=== PATIENT | female | born 1950 | race Caucasian/White ===

== ENCOUNTER → 2016-12-04 | Outpatient (CLI) | payer MEDICARE ==
[~2016-12-04] MED LIST: ATOR20TA66 PO; CALC-654 PO; CETI10TA20 PO; EPIN0.3P3 IJ; FURO20TA4 PO; LEVO50TA6 PO; MELO7.5T46 PO; METH4TAB PO; MULT-974 PO; OMG1KC PO; POTA-51 PO; RANI150T90 PO; SPIR25TA3 PO; SULF1TAB38 PO
--- NOTE | 2016-12-04 18:03 | Diagnostic Imaging Report ---
CLINICAL INDICATION: Patient with thyroid nodule. COMPARISONS: None. FINDINGS: THYROID NODULES: There is a 7 mm x 5 mm x 7 mm slightly heterogeneous hypoechoic/isoechoic nodule in the right of midline isthmus region. This nodule demonstrates central Doppler flow. THYROID GLAND: Besides the thyroid nodule, the thyroid gland has slightly heterogeneous echotexture and increased Doppler flow. The right lobe measures 4.0 cm x 1.6 cm x 1.4 cm and the left lobe measures 4.4 cm x 1.4 cm x 1.4 cm in their three dimensions. ISTHMUS: The isthmus is unremarkable and measures 3 mm in thickness. IMPRESSION: 1: There is a 7 mm slightly heterogeneous nodule in the right of midline isthmus region which demonstrates central Doppler flow. Followup thyroid ultrasound in 6 months is suggested to evaluate for stability. 2: There is nonspecific slightly heterogeneous echotexture of the thyroid parenchyma with increased Doppler flow. Clinical correlation for thyroid disease is suggested. Dictated by: Dictated on workstation # [id number]
== END ==
LOC: RAD 13:53
PROVIDERS: ATTEND Family Medicine
DX: E04.1 Nontoxic single thyroid nodule (principal)
CPT/HCPCS: 76536

== ENCOUNTER → 2017-03-04 | Outpatient (CLI) | payer MEDICARE ==
--- NOTE | 2017-03-04 16:13 | Diagnostic Imaging Report ---
PROCEDURE: US thyroid. TECHNIQUE: Multiple real-time grayscale images were obtained of the thyroid in various projections. FINDINGS: The right thyroid lobe is 4.4 x 1.8 x 1.5 cm. The left lobe is 4.1 x 1.5 x 1.5 cm. In the right thyroid lobe, there is a solid nodule, measuring 0.7 x 0.6 x 0.6 cm, and another nodule, measuring 0.8 x 0.6 x 0.7 cm, is seen in the thyroid isthmus. When compared to 12/04/2016, the thyroid isthmus nodule appears unchanged. The right thyroid nodule was not definitely seen on the previous exam. No nodule is seen in the left lobe. IMPRESSION: Indeterminate subcentimeter right thyroid lobe and thyroid isthmus nodules. The right thyroid lobe lesion was not seen on the previous exam. Six months followup study is suggested to observe these lesions. Dictated by: Dictated on workstation # [id number]
== END ==
LOC: RAD 14:43
PROVIDERS: ATTEND Plastic Surgery Plastic Surgery Within the Head and Neck
DX: E04.2 Nontoxic multinodular goiter (principal)
CPT/HCPCS: 76536

== ENCOUNTER → 2017-09-04 | Outpatient (CLI) | payer MEDICARE ==
--- NOTE | 2017-09-04 17:58 | Diagnostic Imaging Report ---
PROCEDURE: US Thyroid. TECHNIQUE: Multiple real-time grayscale images were obtained of the thyroid in various projections. INDICATION: Followup of thyroid nodule. COMPARISON: 03/04/2017. FINDINGS: Right lobe measures 4.2 x 1.6 x 1.8 cm. The two nodules previously reported in the lower portion are again noted. These are unchanged in size, again measuring approximately 7 x 6 mm. No new nodules have developed. The left lobe measures 4 x 1 x 1.3 cm with no nodules. IMPRESSION: Stable-appearing thyroid ultrasound with right lower lobe nodules again demonstrated measuring less than 1 cm. Dictated by: Dictated on workstation # [id number]
== END ==
LOC: RAD 11:48
PROVIDERS: ATTEND Plastic Surgery Plastic Surgery Within the Head and Neck
DX: E04.9 Nontoxic goiter, unspecified (principal)
CPT/HCPCS: 76536

== ENCOUNTER → 2017-10-28 | Outpatient (CLI) | payer MEDICARE ==
--- NOTE | 2017-10-29 12:45 | Diagnostic Imaging Report ---
EXAMINATION: Digital mammogram bilateral screening with CAD. INDICATION: Screening. COMPARISON: 09/09/2016, 09/05/2015, and 06/06/2014. PERSONAL HISTORY: At this time, there are no current complaints. FINDINGS: The fibroglandular tissue in both breasts is heterogeneously dense. This does limit the sensitivity of this exam. Overall, there does not appear to have been any significant change when compared to the prior study. No primary or secondary sign of malignancy is noted. IMPRESSION: There is no radiographic evidence for malignancy. ACR BI-RADS Category 2: Benign findings. Result letter will be mailed to the patient. Note: At least 10% of breast cancer is not imaged by mammography. Dictated on workstation # [id number]
== END ==
LOC: RAD 10:00
PROVIDERS: ATTEND Family Medicine
DX: Z12.31 Encounter for screening mammogram for malignant neoplasm of breast (principal)
CPT/HCPCS: 77067

== ENCOUNTER → 2018-03-31 | Outpatient (CLI) | payer MEDICARE ==
--- NOTE | 2018-03-31 13:38 | Diagnostic Imaging Report ---
EXAMINATION: Lumbar spine radiographs, 3 views. COMPARISON: None. INDICATION: 67-year-old female, bilateral hip pain. Low back pain. FINDINGS: There are 5 lumbar type vertebral bodies. There is a mild lumbar levocurvature. There is grade 1 anterolisthesis of L4 on L5 measuring approximately 2.6 mm. There is limited evaluation for pars interarticularis defects without oblique views. The bones do appear somewhat demineralized. There is a partially visualized right hip prosthesis. There is no identified compression deformity. There are multilevel mild disc degenerative changes of the lumbar spine with mild endplate degenerative changes. There is mild disc height loss at L5-S1 and mild disc height loss at L4-L5. There are advanced right greater than left facet degenerative changes at L4-L5 and L5-S1. The sacroiliac joints are unremarkable in appearance. IMPRESSION: 1. Mild lumbar levoscoliosis with disc and facet degenerative changes most notable at L4-L5 and L5-S1. 2. Grade 1 anterolisthesis of L4 on L5 measuring 2.6 mm. 3. The bones appear somewhat demineralized without identified compression deformity. Dictated by: Dictated on workstation # [id number]
--- NOTE | 2018-03-31 13:58 | Diagnostic Imaging Report ---
INDICATION: Pelvic and right hip pain AP view of the pelvis is obtained. Comparison is made to the examination of 11/06/2015. 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 There is mild narrowing of left hip joint space. Mild lower lumbar degenerative disc and facet disease is also noted. There is no evidence of fracture or malalignment. No abnormal lytic or sclerotic focus is detected. IMPRESSION: No acute abnormality identified. There is mild lumbar spondylosis and left hip osteoarthritis. There is no evidence of complication related to total right hip arthroplasty. Dictated by: Dictated on workstation # [id number]
== END ==
LOC: RAD 11:03
PROVIDERS: ATTEND Family Medicine
DX: M16.11 Unilateral primary osteoarthritis, right hip (principal); M81.0 Age-related osteoporosis without current pathological fracture; M47.817 Spondylosis without myelopathy or radiculopathy, lumbosacral region; M43.16 Spondylolisthesis, lumbar region; R27.0 Ataxia, unspecified
CPT/HCPCS: 72100; 72170

== ENCOUNTER → 2018-06-23 | Outpatient (CLI) | payer MEDICARE ==
[~2018-06-23] MED LIST changes: -SPIR25TA3 PO; +SPIR25TA5 PO
--- NOTE | 2018-06-23 16:02 | Diagnostic Imaging Report ---
INDICATION: Right leg pain. TECHNIQUE: AP and lateral views of the right femur were obtained. FINDINGS: The right knee prosthesis appears in good alignment. The right hip prosthesis appears in good alignment. There is no fracture or device loosening. There is no lytic or blastic lesion. IMPRESSION: Well aligned right knee prosthesis and right hip prosthesis. No acute bony abnormality. Dictated by: Dictated on workstation # [id number]
== END ==
LOC: RAD 14:36
PROVIDERS: ATTEND Nurse Practitioner Family
DX: M79.604 Pain in right leg (principal); Z96.651 Presence of right artificial knee joint; Z96.641 Presence of right artificial hip joint
CPT/HCPCS: 73552

== ENCOUNTER → 2018-09-06 | Outpatient (CLI) | payer MEDICARE ==
--- NOTE | 2018-09-06 12:11 | Diagnostic Imaging Report ---
CLINICAL INDICATION: Patient with history of thyroid nodules. Followup exam. COMPARISONS: Thyroid ultrasound dated 09/04/2017. FINDINGS: THYROID NODULES: There is a stable 7 mm x 7 mm x 5 mm isoechoic nodule with hypoechoic rim which is seen just right of midline involving the isthmus. The previously seen heterogeneous right thyroid gland nodule is not seen on today's exam and is resolved. THYROID GLAND: Besides the thyroid nodule, the thyroid gland has normal size, shape and echogenicity. The right lobe measures 3.3 cm x 1.5 cm x 1.6 cm and the left lobe measures 4.3 cm x 1.2 cm x 1.3 cm in their three dimensions. ISTHMUS: The isthmus is unremarkable and measures 4 mm in thickness. IMPRESSION: 1: Stable benign-appearing thyroid nodule in the right of midline area of the isthmus. 2: The previously seen heterogeneous right thyroid gland nodule has resolved. 3: The remainder of the thyroid gland is unremarkable. Dictated by: Dictated on workstation # [id number]
== END ==
LOC: RAD 10:45
PROVIDERS: ATTEND Plastic Surgery Plastic Surgery Within the Head and Neck
DX: E04.1 Nontoxic single thyroid nodule (principal)
CPT/HCPCS: 76536

== ENCOUNTER → 2018-11-01 | Outpatient (CLI) | payer MEDICARE ==
--- NOTE | 2018-11-01 10:34 | Diagnostic Imaging Report ---
Indication: Routine screening. Comparison is made with prior mammogram from 10/28/2017 and 09/09/2016. 2-D and 3-D bilateral screening mammography was performed with CAD. Scattered fibroglandular densities are identified bilaterally. Ovoid nodular density in the medial right breast appears stable. No mass or malignant-appearing microcalcifications are seen. The axillae are unremarkable. Impression: BI-RADS category 1 No mammographic features suspicious for malignancy are identified. ACR BI-RADS Category 1: Negative. Result letter will be mailed to the patient. Note: At least 10% of breast cancer is not imaged by mammography. Dictated by: Dictated on workstation # [id number]
== END ==
LOC: RAD 08:52
PROVIDERS: ATTEND Family Medicine
DX: Z12.31 Encounter for screening mammogram for malignant neoplasm of breast (principal)
CPT/HCPCS: 77067

== ENCOUNTER → 2020-10-03 | Outpatient (CLI) | payer MEDICARE ==
[~2020-10-03] MED LIST changes: -CETI10TA20 PO; +CETI10TA49 PO
--- NOTE | 2020-10-03 14:10 | Diagnostic Imaging Report ---
PROCEDURE: US Thyroid. TECHNIQUE: Multiple real-time grayscale images were obtained of the thyroid in various projections. INDICATION: Thyroid nodule Compared to 09/06/2018. The right thyroid lobe measured 3.4 x 1.5 x 1.5 cm. In its lower pole medially. There is a left para isthmic mass measuring 1.1 x 0.6 x 0.7 cm, solid hypoechoic and well-defined without calcifications. No extra thyroidal extension. It previously measured 8 mm in maximal dimension in 2018 The left thyroid lobe measured 4.2 x 1.4 x 1.3 cm and contains 2 minute 2 to 3 mm cystic foci laterally with no solid or suspicious mass. IMPRESSION: A mass junction lateral isthmus and lower right thyroid lobe is 1.1 cm slightly larger than on prior and is a TI-RADS 4 lesion. Given its size of just over 1 cm annual follow-ups at 1, 2, 3 and a 5 year period recommended. Dictated by: Dictated on workstation # [id number]
== END ==
LOC: RAD 09:57
PROVIDERS: ATTEND Plastic Surgery Plastic Surgery Within the Head and Neck
DX: E04.1 Nontoxic single thyroid nodule (principal)
CPT/HCPCS: 76536

== ENCOUNTER → 2020-11-27 | Outpatient (CLI) | payer MEDICARE ==
--- NOTE | 2020-11-27 11:41 | Diagnostic Imaging Report ---
INDICATION: Routine screening. COMPARISON: 11/01/2018 and 10/28/2017. TECHNIQUE: 2D and 3D bilateral screening mammography was performed with CAD. FINDINGS: Both breasts are heterogeneously dense, limiting the sensitivity of mammography. The previously noted ovoid benign nodule in the medial right breast is again noted and appears stable. Overall breast parenchymal pattern is stable. No new mass or malignant appearing microcalcifications are seen. The axillae are unremarkable. IMPRESSION: No mammographic features suspicious for malignancy are identified. ACR BI-RADS Category 2: Benign findings. Result letter will be mailed to the patient. Note: At least 10% of breast cancer is not imaged by mammography. Dictated by: Dictated on workstation # [id number]
== END ==
LOC: RAD 09:15
PROVIDERS: ATTEND Nurse Practitioner Family
DX: Z12.31 Encounter for screening mammogram for malignant neoplasm of breast (principal)
CPT/HCPCS: 77063; 77067

== ENCOUNTER → 2022-01-06 | Outpatient (CLI) | payer MEDICARE ==
--- NOTE | 2022-01-06 10:07 | Diagnostic Imaging Report ---
INDICATION: Routine screening. COMPARISON: 11/27/2020 and 11/01/2018. TECHNIQUE: 2D and 3D bilateral screening mammography was performed with CAD. FINDINGS: Both breasts are heterogeneously dense, limiting the sensitivity of mammography. The parenchymal pattern appears stable. No mass or malignant-appearing microcalcifications are seen. The axillae are unremarkable. IMPRESSION: No mammographic features suspicious for malignancy are identified. ACR BI-RADS Category 1: Negative. Result letter will be mailed to the patient. Note: At least 10% of breast cancer is not imaged by mammography. Dictated by: Dictated on workstation # [id number]
== END ==
LOC: RAD 08:32
PROVIDERS: ATTEND Family Medicine
DX: Z12.31 Encounter for screening mammogram for malignant neoplasm of breast (principal)
CPT/HCPCS: 77063; 77067

== ENCOUNTER → 2022-08-18 | Outpatient (RCR) | payer MEDICARE | END | disposition home or self-care (01) | PROVIDERS: ATTEND Family Medicine | DX: M54.16 Radiculopathy, lumbar region (principal); M25.561 Pain in right knee ==

== ENCOUNTER 2022-09-16 09:11 | Outpatient (RCR) | payer MEDICARE | END 2022-09-17 | disposition home or self-care (01) | PROVIDERS: ATTEND Family Medicine | DX: M54.16 Radiculopathy, lumbar region (principal); M25.561 Pain in right knee ==

== ENCOUNTER 2022-10-03 09:24 | Outpatient (RCR) | payer MEDICARE | END 2022-10-03 10:15 | disposition home or self-care (01) | PROVIDERS: ATTEND Family Medicine | DX: M54.16 Radiculopathy, lumbar region (principal); M25.561 Pain in right knee ==

== ENCOUNTER → 2023-01-12 | Outpatient (CLI) | payer MEDICARE ==
--- NOTE | 2023-01-12 13:52 | Diagnostic Imaging Report ---
INDICATION: Routine screening. Comparison is made with prior mammogram 01/06/2022 and 11/27/2020. 2-D and 3-D bilateral screening mammography was performed with CAD. Both breasts are heterogeneously dense, limiting the sensitivity of mammography. The parenchymal pattern is stable. No mass or malignant-appearing microcalcifications are seen. Axillae are unremarkable. IMPRESSION: No mammographic features suspicious for malignancy are identified. ACR BI-RADS Category 1: Negative. Result letter will be mailed to the patient. Note: At least 10% of breast cancer is not imaged by mammography. BI-RADS Category 1 Dictated by: Dictated on workstation # [id number]
== END ==
LOC: RAD 09:10
PROVIDERS: ATTEND Family Medicine
DX: Z12.31 Encounter for screening mammogram for malignant neoplasm of breast (principal)
CPT/HCPCS: 77063; 77067

== ENCOUNTER → 2023-09-25 | Outpatient (CLI) | payer MEDICARE ==
[~2023-09-25] MED LIST changes: +POTA-330 PO; -POTA-51 PO
--- NOTE | 2023-09-25 15:13 | Diagnostic Imaging Report ---
INDICATION: Right isthmus thyroid nodule, follow-up. COMPARISON: Correlation is made with prior thyroid ultrasound of 10/03/2020. FINDINGS: Right lobe of the thyroid measures 3.5 x 1.6 x 1.0 cm and the left lobe measures 4.1 x 1.2 x 1.3 cm. Isthmus is 3 mm in thickness. A circumscribed hypoechoic solid-appearing nodule in the medial lower pole of the right lobe of the thyroid at the isthmus appears stable at 11 x 8 x 8 mm. This compares with 11 x 6 x 7 mm on prior exam. Tiny hypoechoic nodule in the midportion of the right lobe measures 3 mm. Left lobe does contain two 3 to 4 mm cystic lesions. No new abnormality is detected. IMPRESSION: Overall, stable dominant nodule in the lower pole of the right lobe near the isthmus when compared with exam from 10/03/2020. Dictated by: Dictated on workstation # [id number]
== END ==
LOC: RAD 10:33
PROVIDERS: ATTEND Family Medicine
DX: E04.2 Nontoxic multinodular goiter (principal); Z80.8 Family history of malignant neoplasm of other organs or systems
CPT/HCPCS: 76536